=== PATIENT | female | born 1950 | race Caucasian/White ===

== ENCOUNTER → 2023-07-10 | Day surgery (SDC) | payer OTHER ==
[2023-07-10 09:53] LABS: POTASSIUM 3.9 mmol/L (3.5-5.1)
[2023-07-10 10:12] LABS: BLOOD UREA NITROGEN 17.1 mg/dL (7-18); CALCIUM 8.7 mg/dL (8.5-10.1)
[2023-07-10 10:13] LABS: ALBUMIN 3.4 g/dl (3.4-5.0)
[2023-07-10 10:15] LABS: CREATININE 0.7 mg/dL (0.55-1.3)
[2023-07-10 10:17] LABS: BILIRUBIN,TOTAL 0.2 mg/dL (0.2-1); TOT PROT 7.5 g/dl (6.4-8.2)
== END | disposition home or self-care (01) ==
LOC: JRADIR 08:16
PROVIDERS: ATTEND Internal Medicine Endocrinology, Diabetes & Metabolism
PROC: 0G9G3ZX Drainage of Left Thyroid Gland Lobe, Percutaneous Approach, Diagnostic (ICD-10-PCS; principal; 2023-07-10)
DX: E04.1 Nontoxic single thyroid nodule (principal)
CPT/HCPCS: 10005; 36415; 76942; 80053; 80061; 83036; 88173; 88305-TC

== ENCOUNTER 2025-04-20 10:58 | Emergency (ER) | payer OTHER ==
[2025-04-20 11:21] VITALS: BP 112/64; PULSE 100; RESP 17; TEMP 98.2; BMI 24.7
[2025-04-20] MEDS ORDERED: ACETAMINOPHEN 325 MG TABLET (FP) ONE (12:07)
[2025-04-20] MEDS: ACETAMINOPHEN 650 MG/20.3 ML ORAL SOLUTION (CUPS) PO ONE (12:11)
== END 2025-04-20 13:34 | disposition home or self-care (01) ==
LOC: JERFT 10:58
DX: R07.0 Pain in throat (principal); R09.89 Other specified symptoms and signs involving the circulatory and respiratory systems
CPT/HCPCS: 71046-TC-FY; 99283-25